=== PATIENT | male | born 1950 | race Caucasian/White ===

== ENCOUNTER 2016-05-14 19:04 | Emergency (ER) | payer MEDICARE, MEDICAID ==
[~2016-05-14] VITALS: Ht 172.7 cm; Wt 79.0 kg
[~2016-05-14 19:04] MED LIST: ALBU8.5H IH; ATORVASTATIN PO; HYDR25TA PO; LISI-662 PO; METF500T4 PO
[2016-05-14] MEDS ORDERED: HALOPERIDOL LACTATE 5 MG/ML VIAL ONE (19:56)
[2016-05-14] MEDS ORDERED: LORazepam 2 MG/ML VIAL ONE (19:56)
[2016-05-14] MEDS ORDERED: DiphenhydrAMINE HCL 50 MG/ML VIAL ONE (19:56)
[2016-05-14] MEDS ORDERED: HALOPERIDOL LACTATE 5 MG/ML VIAL IM ONE (20:00)
[2016-05-14] MEDS ORDERED: LORazepam 2 MG/ML VIAL IM ONE (20:00)
[2016-05-14] MEDS ORDERED: DiphenhydrAMINE HCL 50 MG/ML VIAL IM ONE (20:00)
[2016-05-14 20:32] LABS: BASOPHILS % (AUTO) 0.7 % (0.0-2.0); EOSINOPHILS % (AUTO) 6.1 % (1.0-6.0); HEMATOCRIT 33.4 % (41-53); HEMOGLOBIN 11.2 g/dL (13.5-17.5); LYMPHOCYTES # (AUTO) 2.6 K/uL (1.0-4.8); LYMPHOCYTES % (AUTO) 37.4 % (22.0-44.0); MEAN CORPUSCULAR HEMOGLOBIN 31.4 pg (26.0-34.0); MEAN CORPUSCULAR HGB CONC 33.5 G/dL (31.0-37.0); MEAN CORPUSCULAR VOLUME 94 fL (80-100); MONOCYTES # (AUTO) 0.7 K/uL (0.1-1.0); MONOCYTES % (AUTO) 10.1 % (2.0-9.0); NEUTROPHILS # (AUTO) 3.1 K/uL (1.8-7.7); NEUTROPHILS % (AUTO) 45.7 % (40.0-70.0); PLATELET COUNT (AUTO) 151 K/uL (150-450); RED BLOOD CELL COUNT(AUTO) 3.56 MIL/uL (4.50-5.90); RED CELL DISTRIBUTION WIDTH 14.2 % (11.5-14.5); WHITE BLOOD COUNT (AUTO) 6.9 K/uL (4.5-11.0)
[2016-05-14 20:42] LABS: CALCIUM, TOTAL 9.3 mg/dL (8.8-10.5); CREATININE 1.42 mg/dL (0.60-1.30); POTASSIUM 3.7 mmol/L (3.5-5.1)
[2016-05-14 20:48] LABS: ALBUMIN 3.5 g/dL (3.4-5.0); BILIRUBIN,TOTAL 0.3 mg/dL (0.1-1.0); TOTAL PROTEIN, SERUM 7.3 g/dL (6.4-8.2)
[2016-05-15 01:24] VITALS: BP 137/88
== END 2016-05-15 01:26 | disposition home or self-care (01) ==
LOC: EMS 19:05
DX: R45.851 Suicidal ideations (principal); F29 Unspecified psychosis not due to a substance or known physiological condition; F10.129 Alcohol abuse with intoxication, unspecified; E11.40 Type 2 diabetes mellitus with diabetic neuropathy, unspecified; J44.9 Chronic obstructive pulmonary disease, unspecified; E78.00 Pure hypercholesterolemia, unspecified; I10 Essential (primary) hypertension; F17.210 Nicotine dependence, cigarettes, uncomplicated; Y90.6 Blood alcohol level of 120-199 mg/100 ml
CPT/HCPCS: 36415; 80053; 85025; 96372; 99291; 99406; G0480; J1200; J1630; J2060

== ENCOUNTER 2016-06-09 22:55 | Inpatient (IN) | payer MEDICAID, MEDICARE ==
[~2016-06-09] VITALS: Ht 172.7 cm; Wt 84.8 kg
[2016-06-09] MEDS ORDERED: SODIUM CHLORIDE 0.9% 1,000 ML IV ONE ×2 (23:36→23:45)
[2016-06-09 23:38] LABS: BASOPHILS % (AUTO) 1.1 % (0.0-2.0); EOSINOPHILS % (AUTO) 5.4 % (1.0-6.0); HEMATOCRIT 35.5 % (41-53); HEMOGLOBIN 12.1 g/dL (13.5-17.5); LYMPHOCYTES # (AUTO) 2.9 K/uL (1.0-4.8); LYMPHOCYTES % (AUTO) 41.7 % (22.0-44.0); MEAN CORPUSCULAR HEMOGLOBIN 31.6 pg (26.0-34.0); MEAN CORPUSCULAR VOLUME 93 fL (80-100); MONOCYTES # (AUTO) 0.6 K/uL (0.1-1.0); NEUTROPHILS % (AUTO) 42.8 % (40.0-70.0); PLATELET COUNT (AUTO) 251 K/uL (150-450); RED BLOOD CELL COUNT(AUTO) 3.82 MIL/uL (4.50-5.90); RED CELL DISTRIBUTION WIDTH 14.7 % (11.5-14.5); WHITE BLOOD COUNT (AUTO) 6.9 K/uL (4.5-11.0)
[2016-06-09 23:45] LABS: ANION GAP 14 mmol/L (8-16); CALCIUM, TOTAL 9.1 mg/dL (8.8-10.5); CARBON DIOXIDE 25 mmol/L (22-29); CHLORIDE 101 mmol/L (98-107); CREATININE 1.29 mg/dL (0.60-1.30); GLOMERULAR FILTR. RATE CALC 56 mL/min (>60); POTASSIUM 3.8 mmol/L (3.5-5.1); SODIUM SERUM 140 mmol/L (136-145); UREA NITROGEN, BLOOD 30 mg/dL (7-18)
[2016-06-09 23:51] LABS: ALANINE AMINOTRANSFERASE 30 U/L (12-78); ALBUMIN 3.7 g/dL (3.4-5.0); ASPARTATE AMINOTRANSFERASE 27 U/L (15-37); BILIRUBIN,TOTAL 0.2 mg/dL (0.1-1.0); TOTAL PROTEIN, SERUM 7.4 g/dL (6.4-8.2)
[2016-06-10 00:04] LABS: ACETAMINOPHEN < 2 mcg/mL (10-30)
[2016-06-10] MEDS ORDERED: ZOLPIDEM TARTRATE 10 MG TABLET PO PRN (00:15)
[2016-06-10] MEDS ORDERED: LORazepam 2 MG/ML VIAL IVP PRN (00:15)
[2016-06-10] MEDS ORDERED: ALBUTEROL SULFATE 2.5 MG/0.5 ML NEB SOLUTION NEB PRN (00:15)
[2016-06-10] MEDS ORDERED: ONDANSETRON HCL 4 MG/2 ML VIAL IVP PRN (00:15)
[2016-06-10] MEDS ORDERED: ACETAMINOPHEN 325 MG TABLET PO PRN (00:15)
[2016-06-10 01:42] VITALS: BP 127/70
[2016-06-10] MEDS: OxyCODONE HCL/ACETAMINOPHEN 5-325 MG TABLET PO PRN ×3 (01:48→13:02)
[2016-06-10] MEDS: ALBUTEROL SULFATE 2.5 MG/0.5 ML NEB SOLUTION NEB SCH ×2 (02:49→08:25)
[2016-06-10] MEDS ORDERED: 0.9% SODIUM CHLORIDE 5 ML NEB SOLUTION NEB ONE ×3 (02:52→14:49)
[2016-06-10 05:15] VITALS: BP 126/75
[2016-06-10 06:37] LABS: GLUCOSE,POINT OF CARE 132 MG/DL (70-110)
[2016-06-10] MEDS ORDERED: MetFORMIN HCL 500 MG TABLET PO SCH (08:00)
[2016-06-10] MEDS ORDERED: HEPARIN SODIUM,PORCINE 5,000 UNITS/ML VIAL SQ SCH (08:00)
[2016-06-10 08:03] VITALS: BP 141/79
[2016-06-10] MEDS ORDERED: PANTOPRAZOLE SODIUM 40 MG DR TABLET PO SCH (09:00)
[2016-06-10] MEDS ORDERED: HYDROCHLOROTHIAZIDE 25 MG TABLET PO SCH (09:00)
[2016-06-10] MEDS ORDERED: LISINOPRIL 20 MG TABLET PO SCH (09:00)
[2016-06-10 09:55] LABS: APPEARANCE,URINE CLEAR (CLEAR); GLUCOSE, URINE (UA) NEGATIVE (NEGATIVE); KETONES,URINE TRACE mg/dL (NEGATIVE); LEUKOCYTE ESTERASE ,URINE NEGATIVE (NEGATIVE); OCCULT BLOOD,URINE NEGATIVE (NEGATIVE); PH,URINE 5.5 (5.0-8.0); PROTEIN,URINE NEGATIVE (NEGATIVE)
[2016-06-10 09:59] LABS: ADD UA MICROSCOPIC YES
[2016-06-10 10:03] LABS: RBC,URINE None Seen /HPF (0-2); SQUAMOUS EPITHELIAL CELL,UR Few /LPF (None Seen); WBC,URINE 0-2 /HPF (0-5)
[2016-06-10 11:42] LABS: GLUCOSE,POINT OF CARE 110 MG/DL (70-110)
[2016-06-10 12:05] VITALS: BP 155/80
== END 2016-06-10 14:58 | disposition home or self-care (01) | DRG 917 ==
LOC: EMS 22:57 → 6N 06-10 00:15
PROVIDERS: ADMIT Hospitalist; ATTEND Hospitalist
DX: T50.901A Poisoning by unspecified drugs, medicaments and biological substances, accidental (unintentional), initial encounter (principal); G93.40 Encephalopathy, unspecified; J44.9 Chronic obstructive pulmonary disease, unspecified; I10 Essential (primary) hypertension; E78.5 Hyperlipidemia, unspecified; D64.9 Anemia, unspecified; E11.40 Type 2 diabetes mellitus with diabetic neuropathy, unspecified; F10.229 Alcohol dependence with intoxication, unspecified; Y90.6 Blood alcohol level of 120-199 mg/100 ml; M19.90 Unspecified osteoarthritis, unspecified site; F17.210 Nicotine dependence, cigarettes, uncomplicated
CPT/HCPCS: 80307; 82962; 87086; 93005; 94640; 96360; 99285; G0480; G0481; J1644; J7030

== ENCOUNTER 2016-06-25 15:14 | Emergency (ER) | payer MEDICARE ==
[~2016-06-25] VITALS: Ht 180.3 cm; Wt 81.8 kg
[2016-06-25 15:59] LABS: BASOPHILS % (AUTO) 0.6 % (0.0-2.0); EOSINOPHILS % (AUTO) 0.9 % (1.0-6.0); HEMOGLOBIN 12.4 g/dL (13.5-17.5); LYMPHOCYTES # (AUTO) 2.5 K/uL (1.0-4.8); LYMPHOCYTES % (AUTO) 24.4 % (22.0-44.0); MEAN CORPUSCULAR HEMOGLOBIN 31.2 pg (26.0-34.0); MEAN CORPUSCULAR HGB CONC 33.5 G/dL (31.0-37.0); MEAN CORPUSCULAR VOLUME 93 fL (80-100); MONOCYTES # (AUTO) 0.9 K/uL (0.1-1.0); MONOCYTES % (AUTO) 8.5 % (2.0-9.0); NEUTROPHILS # (AUTO) 6.6 K/uL (1.8-7.7); NEUTROPHILS % (AUTO) 65.6 % (40.0-70.0); PLATELET COUNT (AUTO) 191 K/uL (150-450); RED BLOOD CELL COUNT(AUTO) 3.98 MIL/uL (4.50-5.90); RED CELL DISTRIBUTION WIDTH 13.8 % (11.5-14.5); WHITE BLOOD COUNT (AUTO) 10.1 K/uL (4.5-11.0)
[2016-06-25] MEDS ORDERED: ONDANSETRON HCL 4 MG/2 ML VIAL IVP ONE (16:00)
[2016-06-25] MEDS ORDERED: MORPHINE SULFATE 4 MG/ML SYRINGE IVP ONE ×2 (16:00→18:15)
[2016-06-25 16:07] LABS: ANION GAP 19 mmol/L (8-16); CALCIUM, TOTAL 9.4 mg/dL (8.8-10.5); CARBON DIOXIDE 20 mmol/L (22-29); CHLORIDE 88 mmol/L (98-107); CREATININE 1.08 mg/dL (0.60-1.30); GLOMERULAR FILTR. RATE CALC > 60 mL/min (>60); POTASSIUM 3.5 mmol/L (3.5-5.1); SODIUM SERUM 127 mmol/L (136-145); UREA NITROGEN, BLOOD 16 mg/dL (7-18)
[2016-06-25 16:09] LABS: PROTHROMBIN TIME 10.4 SEC (9.4-11.6)
[2016-06-25 16:25] LABS: B-TYPE NATRIURETIC PEPTIDE 20 pg/mL (0-100)
[2016-06-25 16:33] LABS: ALANINE AMINOTRANSFERASE 38 U/L (12-78); ALBUMIN 4.2 g/dL (3.4-5.0); ASPARTATE AMINOTRANSFERASE 46 U/L (15-37); BILIRUBIN,TOTAL 0.8 mg/dL (0.1-1.0); CREATINE KINASE MB 3.1 ng/mL (0-5); CREATINE KINASE, TOTAL 158 U/L (39-308); TOTAL PROTEIN, SERUM 7.6 g/dL (6.4-8.2)
[2016-06-25] MEDS ORDERED: IPRATROPIUM BROMIDE 0.5 MG/2.5 ML NEB SOLUTION NEB ONE (17:15)
[2016-06-25] MEDS ORDERED: ALBUTEROL SULFATE 2.5 MG/0.5 ML NEB SOLUTION NEB ONE (17:15)
[2016-06-25 19:02] LABS: APPEARANCE,URINE CLOUDY (CLEAR); GLUCOSE, URINE (UA) NEGATIVE (NEGATIVE); KETONES,URINE 15 mg/dL (NEGATIVE); LEUKOCYTE ESTERASE ,URINE NEGATIVE (NEGATIVE); OCCULT BLOOD,URINE NEGATIVE (NEGATIVE); PROTEIN,URINE TRACE (NEGATIVE)
[2016-06-25 19:21] LABS: ADD UA MICROSCOPIC YES
[2016-06-25 19:24] VITALS: BP 130/76
[2016-06-25 19:36] LABS: RBC,URINE None Seen /HPF (0-2)
[2016-06-25 19:37] LABS: SQUAMOUS EPITHELIAL CELL,UR Few /LPF (None Seen)
[2016-06-25 19:37] LABS: GLUCOSE COMMENT 1 Doctor Notified; GLUCOSE,POINT OF CARE 90 MG/DL (70-110)
== END 2016-06-25 19:45 | disposition short-term general hospital (02) ==
LOC: EMS 15:15
DX: R07.89 Other chest pain (principal); J44.9 Chronic obstructive pulmonary disease, unspecified; M54.41 Lumbago with sciatica, right side; E11.40 Type 2 diabetes mellitus with diabetic neuropathy, unspecified; I10 Essential (primary) hypertension; E78.00 Pure hypercholesterolemia, unspecified; F17.210 Nicotine dependence, cigarettes, uncomplicated
CPT/HCPCS: 36415; 71010; 80053; 81001; 82550; 82553; 82962; 83880; 84484; 85025; 85610; 85730; 93005; 94640; 96374; 96375; 96376; 99285; G0480; J2270; J2405